=== PATIENT | female | born 1975 | race Caucasian/White ===

== ENCOUNTER 2018-07-31 23:55 | Emergency (ER) | payer MEDICAID ==
[~2018-07-31] VITALS: Ht 175.3 cm; Wt 106.3 kg
[~2018-07-31 23:55] MED LIST: BACL20TA PO; BACL20TA84 PO; BENZ-16 PO; CLIN-26 PO; FURO-61 PO; NEOM10DR45 LEFT EAR; POTA8TAB3 PO; POTA8TAB46 PO
[2018-08-01] MEDS ORDERED: clindamycin 150mg capsule PO ONE (00:05)
[2018-08-01] MEDS ORDERED: CLIN150C8 PO (00:07)
[2018-08-01 00:15] VITALS: BP 132/70
== END 2018-08-01 00:17 | disposition home or self-care (01) ==
LOC: ER 23:58
DX: K08.89 Other specified disorders of teeth and supporting structures (principal); E78.00 Pure hypercholesterolemia, unspecified; J45.909 Unspecified asthma, uncomplicated; G89.29 Other chronic pain; F17.210 Nicotine dependence, cigarettes, uncomplicated; Z88.1 Allergy status to other antibiotic agents; Z88.0 Allergy status to penicillin; Z88.2 Allergy status to sulfonamides; Z91.010 Allergy to peanuts; Z79.2 Long term (current) use of antibiotics; Z79.899 Other long term (current) drug therapy
CPT/HCPCS: 99283

== ENCOUNTER 2025-05-04 22:04 | Inpatient (IN) | payer MEDICAID ==
[~2025-05-04] VITALS: Ht 175.3 cm; Wt 80.5 kg
[~2025-05-04 22:04] MED LIST changes: +CLIN-214 PO; -POTA8TAB3 PO; +POTA8TAB69 PO
[2025-05-04] MEDS: ondansetron/PF 4mg/2ml inj IV ONE (22:44)
[2025-05-04] MEDS: normal saline 1000ml 1,000 ML IV ONE (22:44)
[2025-05-04 23:37] LABS: MEAN PLATELET VOLUME 9.5 FL (7.4-10.4); RED CELL DISTRIBUTION WIDTH 13.7 % (11.5-14.5)
[2025-05-04 23:45] LABS: LEUKOCYTE ESTERASE ,URINE NEGATIVE (Neg); NITRITES, URINE NEGATIVE (Neg); OCCULT BLOOD,URINE MODERATE (Neg)
[2025-05-04 23:46] LABS: UA COLLECTION TYPE CLN CATCH MIDSTREAM
[2025-05-04 23:47] LABS: CREATININE 0.93 MG/DL (0.40-0.90); TOTAL CARBON DIOXIDE 21.5 MMOL/L (24-32); eCRCL 68 ML/MIN; eGFR 64 ML/MIN
[2025-05-04 23:53] LABS: SQUAMOUS EPITHELIAL CELL,UR MODERATE /LPF (FEW); YEAST FEW /HPF (NEGATIVE)
[2025-05-05] VITALS (11 sets, daily range): BP systolic 108–138; BP diastolic 61–76; PULSE 69–101; RESP 15–28; TEMP 97.8–98.9; O2SAT 96–100
[2025-05-05] MEDS ORDERED: CefTRIAXone/D5W-Rocephin 1gm 50 ML IV ONE
[2025-05-05 00:31] LABS: ABG BASE EXCESS -4.6 mmol/L (-2.0-3.0); ABG HCO3 19.0 mmol/L (21.0-28.0); ABG OXYGEN SATURATION 96.7 % (94.0-98.0); ABG PCO2 (T) 31.4 mmHg (32.0-45.0); ABG PH (T) 7.400 (7.350-7.450); ABG PO2 (T) 82.1 mmHg (83.0-108.0); ALLEN'S TEST Modified; FCOHb 1.6 % (0.5-1.5); FHHb 3.2 % (0.0-5.0); FIO2 21.0 mmHg/%; FMetHb 0.3 % (0.0-1.5); FO2Hb 94.9 % (94.0-98.0); MODE ROOM AIR; PATIENT TEMPERATURE 37.1; TOTAL HEMOGLOBIN 14.1 G/dl (12.0-16.0)
[2025-05-05] MEDS: ciprofloxacin 250mg tablet PO ONE (00:33)
[2025-05-05] MEDS: sulfamethoxazole/trimethoprim DS (800/160mg) tablet PO ONE (00:33)
[2025-05-05] MEDS: metoclopramide 5 mg/ml inj IV ONE (01:02)
[2025-05-05] MEDS: normal saline 1000ml 1,000 ML IV ONE ×2 (01:02→03:35)
[2025-05-05] MEDS: insulin regular, human 10 units/0.1 ml syringe IV ONE (01:07)
[2025-05-05] MEDS ORDERED: magnesium sulf-water 2g/50mL 50 ML IV PRN (01:45)
[2025-05-05] MEDS ORDERED: potassium Cl 40MEQ/1/2NS 520ml 520 ML IV PRN (01:45)
[2025-05-05] MEDS ORDERED: magnesium Cl slow-release 64mg tablet PO PRN (01:45)
[2025-05-05] MEDS ORDERED: potassium Cl 20 mEq SR tablet PO PRN (01:45)
[2025-05-05] MEDS ORDERED: magnesium sulf-water 4G/100mL 100 ML IV PRN (01:45)
[2025-05-05] MEDS ORDERED: dextrose 50%-water 50ml dispensing syringe IV PRN ×2 (01:50)
[2025-05-05] MEDS ORDERED: DEXTROSE 15 GM of carb/4 tabs (each vial/BOTTLE has 4 tablets) PO PRN ×2 (01:50)
[2025-05-05] MEDS ORDERED: ringers solution, lacted 1,000 ML IV SCH (01:50)
[2025-05-05] MEDS ORDERED: glucagon, human recombinant 1mg kit SUBCUT PRN (01:50)
[2025-05-05] MEDS: morphine 4 MG/ML inj SYRINge IV STA (01:50)
--- NOTE | 2025-05-05 02:00 | HISTORY AND PHYSICAL-Residence ---
History & Physical Providers to CC Resident Creating Document: JONATHAN HERRERA, VAHID ~ History of Present Illness Primary Medical Doctor: sky walk-in Reason for Admit\\Complaint: N/V History of Present Illness The patient is a 49-year-old female with a PMH of idiopathic intracranial hypertension, prior ischemic stroke related to COVID-19 (no residual deficits), and chronic right ankle fracture, who presents with nausea and intractable vomiting for the past three days. The vomiting is described as bilious. She reports inability to tolerate oral intake during this period. She also endorses progressive polyuria and polydipsia for the past six months. She denies polyphagia. She additionally reports subjective fever since yesterday but denies chills, cough, chest pain, shortness of breath, or diarrhea. Three days ago, she fell in the bath tub when her left knee buckled, leading to worsening pain in her right ankle (previously fractured, using braces). She describes chronic bilateral knee pain. She currently reports severe right ankle pain and dizziness. She has a significant smoking history of 20 pack years (one pack per day for 20 years), though she recently reduced to four cigarettes daily for the past three months. She lives with her mother and adult children NS currently unemployed due to the her ankle injury. Her primary care physician is Dr. Michael Stout at [facility]. She additionally notes dizziness and extreme right ankle pain. She states she fell in the bathtub three days ago when her left knee buckled, leading to worsening right ankle pain. She describes having "bad knees" Allergies: Coded Allergies: Cephalexin Monohydrate (Unverified Allergy, Intermediate, 02/22/14) Penicillins (Unverified Allergy, Intermediate, 02/22/14) Sulfa (Sulfonamide Antibiotics) (Verified Allergy, Unknown, 02/22/14) peanut (Verified Allergy, Unknown, 02/22/14) Home Medications Home Medications Active Clindamycin HCl CAPSULE (Clindamycin HCl) 150 Mg Capsule 2 Cap PO TID Tessalon Perle (Benzonatate) 100 Mg Capsule 1 Cap PO Q8H 7 Days Ddspinqc-Hkuebnrlp-Uh Ear Susp (Neomycin/Polymyxin B Sulf/Hc) 10 Ml Drops.susp 3 Drop LEFT EAR TID Baclofen 20 Mg Tablet 1 Tablet PO TID Klor-Con 8 (Potassium Chloride) 8 Meq Tablet.er 1 Tab PO DAILY Klor-Con 8 (Potassium Chloride) 8 Meq Tablet.sa 8 Meq PO DAILY Baclofen 20 Mg Tablet 20 Mg PO TID FALL RISK Furosemide 20 Mg Tablet 20 Mg PO DAILY Baclofen 20 Mg Tablet 20 Mg PO TID FALL RISK Clindamycin HCl 150 Mg Capsule 450 Cap PO TID Past Medical History Past Medical History Idiopathic intracranial hypertension, stroke from COVID four years ago Past Surgical History Surgical History Comment Noncontributory Past Social History Social History Comment Lives with her mom in four adult children, currently unemployed due to right ankle injury. She smoked one pack per day for 20 years, currently reduced to four cigarettes per day. Denies consuming alcohol or using recreational drugs. Smoking: Cigarettes Alcohol Use: None Drug Use: None Lives In: Home Occupation: employed ROS All Other Systems: Reviewed and Negative ROS As stated above in the HPI, otherwise all systems are reviewed and negative. Exam Vitals: Vital Signs Date Time Temp Pulse Resp B/P (MAP) Pulse Ox O2 Delivery O2 Flow Rate FiO2 05/05/25 01:50 16 05/05/25 00:38 05/04/25 23:51 88 99 05/04/25 22:07 98.8 0 General: Awake and Alert, no acute distress. HEENT: Conjunctiva pink, Sclera clear, extremely dry Neck: Supple without masses and tenderness. Resp: Unlabored. Lungs clear to auscultation bilaterally. Heart: Regular Rate and rhythm, normal S1 and S2 without murmur, rub or gallop. Abdomen: Soft and non tender no organomegaly Extremities: Peripheral neuropathies, painful right ankle. Limited range of motion left knee Skin: Warm and Dry. Diagnostic Data Last Recorded Lab Results: 05/04/25220905/04/252209 Advance Care Planning Advanced Care plannin - 30 Minutes Additional Plan 1. Newly diagnosed diabetes mellitus with severe hyperglycemia Blood glucose 524, hemoglobin A1c pending Evidence of hyperglycemia and ketonuria but no acidosis. Does not meet criteria for DKA or HHS but consistent with severe hyperglycemia with dehydration Plan Admitted to telemetry floor IV hydration; 2 L NS bolus, then NS 150 mL/hours Received 10 units of Humulin in ER Hyperglycemia/hypoglycemia protocol in place; 25 units of glargine, 10 units of lispro 3 times daily before meal Treat as HHS if effective osmolality more than 320 or AMS develops. Serum osmolality pending Nausea and vomiting; Zofran and Reglan Monitor BMP closely 2. Urinary tract infection UA with pyuria, glucosuria, ketonuria Allergic to penicillins, started empiric ciprofloxacin 400 mg IV Culture pending Monitor fever, WBC, symptoms 3. Severe dehydration From intractable N/V. Loss of skin turgor, mucous membrane extremely dry IV hydration; NS 150 mL/hour 4. Hyponatremia Sodium 129, corrected 136. Likely pseudo hyponatremia secondary to hyperglycemia IV hydration, and hyperglycemia correction 5. mild hypokalemia Borderline low, may worsened with insulin On potassium replacement protocol Monitor BMP closely 5. Right ankle pain after fall History of prior fracture; acute worsening after bathtub fall X-ray of right ankle to evaluate for acute fracture Pain management; morphine 2 mg q.6h PRN 6. Idiopathic intracranial hypertension/pseudomotor cerebri Home furosemide 20 mg daily Dehydration plus diuretic use could have worsened volume depletion Hold Lasix acutely while dehydrated; revisit once euvolemic/electrolytes stable Screen for IH symptoms; headache, visual disturbance, pulsatile tinnitus, or diplopia Outpatient funduscopic exam 7. Tobacco use disorder Twenty pack-year history, recently reduced to four cigarettes per day Counseled on cessation Nicotine patch ordered Code status: Full code DVT prophylaxis: Teresa Herrera Internal Medicine Resident I saw and discussed the care of this pt with the resident team I agree with assessment and plan as documented I have suggested more hydration and continuation of insulin and other treatments Thank you Date of Service: May 05, 2025 Billing Provider: JIMMY CURRY MD, SHAMS, RES May 05, 2025 02:00 JIMMY CURRY MD May 05, 2025 03:41
[2025-05-05] MEDS ORDERED: MONT-40 PO (02:02)
[2025-05-05] MEDS ORDERED: ALBUTEROL (02:02)
[2025-05-05] MEDS ORDERED: AMLO5TAB16 PO (02:02)
[2025-05-05] MEDS ORDERED: GABA300T28 (02:02)
[2025-05-05] MEDS ORDERED: HYDR50TA65 PO (02:02)
[2025-05-05] MEDS ORDERED: GABA300T28 PO (02:02)
[2025-05-05] MEDS ORDERED: ATOR40TA72 PO (02:05)
[2025-05-05] MEDS ORDERED: METO50TA16 PO (02:05)
[2025-05-05] MEDS ORDERED: ASPI-1397 PO (02:05)
[2025-05-05] MEDS ORDERED: BUDE10.2 PO (02:05)
[2025-05-05 02:23] LABS: OSMOLALITY 300 MOSM/K (280-300)
[2025-05-05] MEDS: normal saline 1000ml 1,000 ML IV SCH (03:00)
[2025-05-05] MEDS: nicotine 14mg patch - 24hr TD ONE (03:02)
[2025-05-05] MEDS ORDERED: furosemide 10 MG/1 ML 10ml inj IV ONE (03:25)
[2025-05-05] MEDS: potassium Cl 20 mEq SR tablet PO PRN ×2 (03:55→21:39)
[2025-05-05 04:24] LABS: URINE AMPHETAMINE SCREEN NEGATIVE (Neg); URINE BARBITUATE SCREEN NEGATIVE (Neg); URINE BENZODIAZEPINES SCREEN NEGATIVE (Neg); URINE CANNABINOID SCREEN NEGATIVE (Neg); URINE COCAINE SCREEN NEGATIVE (Neg); URINE METHADONE SCREEN NEGATIVE (Neg); URINE OPIATE SCREEN NEGATIVE (Neg); URINE PHENCYCLIDINE SCREEN NEGATIVE (Neg)
[2025-05-05] MEDS: INSULIN LISPRO 100 UNIT/ML INSULN.PEN MULTI-DOSE SQ SCH ×2 (07:00→09:44)
--- NOTE | 2025-05-05 07:49 | RADIOLOGY REPORT ---
EXAM: DI ANKLE,LIMITED (AP/LAT) CLINICAL INDICATION: Pain worsened after fall TECHNIQUE: DI ANKLE,LIMITED (AP/LAT) Comparison: None FINDINGS/IMPRESSION: There is no evidence of acute fracture or dislocation. The visualized joint space is well maintained. The alignment is anatomical. There is no radiopaque foreign body.
[2025-05-05] MEDS: K and/or MAG REPLACEMENT MC SCH (08:00)
[2025-05-05] MEDS ORDERED: CefTRIAXone/D5W-Rocephin 1gm 50 ML IV SCH (08:00)
[2025-05-05] MEDS: insulin regular, human U-100 10ml vial - multi-dose IV ONE (08:24)
[2025-05-05] MEDS: enoxaparin 40mg/0.4ml syringe SUBCUT SCH (08:34)
[2025-05-05] MEDS: ondansetron/PF 4mg/2ml inj IV PRN (08:34)
[2025-05-05 08:53] LABS: MEAN PLATELET VOLUME 9.4 FL (7.4-10.4); RED CELL DISTRIBUTION WIDTH 13.6 % (11.5-14.5)
[2025-05-05 09:08] LABS: CREATININE 0.90 MG/DL (0.40-0.90); TOTAL CARBON DIOXIDE 23.2 MMOL/L (24-32); eCRCL 78 ML/MIN; eGFR 66 ML/MIN
[2025-05-05] MEDS: metoclopramide 5 mg/ml inj IV PRN (10:32)
[2025-05-05] MEDS: HYDROmorphone inj. 0.5 MG/0.5 ML DISP.SYRIN IV PRN (10:55)
[2025-05-05] MEDS: ciprofloxacin lact 400MG/200ML 200 ML IV SCH (11:39)
[2025-05-05] MEDS: ipratropium/albuterol 3ml nebule NEB PRN (12:33)
--- NOTE | 2025-05-05 13:07 | RADIOLOGY REPORT ---
EXAM: DI KNEE, COMP 4 VW MIN CLINICAL INDICATION: Fall with left knee pain TECHNIQUE: DI KNEE, COMP 4 VW MIN Comparison: None FINDINGS/IMPRESSION: There is no evidence of acute fracture or dislocation. Moderate left knee osteoarthritis . Loose bodies are present. The alignment is anatomical. There is no radiopaque foreign body.
[2025-05-05] MEDS ORDERED: POTASSIUM CHLORIDE 20 MEQ/15 ML oral solution PO PRN (16:04)
[2025-05-05] MEDS: POTASSIUM CHLORIDE 20 MEQ/15 ML oral solution PO PRN (18:01)
[2025-05-05] MEDS: insulin glargine (Lantus) pen - multi-dose SQ SCH (20:52)
--- NOTE | 2025-05-05 22:27 | PROGRESS NOTE ---
Daily Progress Note Providers to CC ~ Antibiotic Timeout Antibiotic Ordered?: Yes Subjective The patient's blood sugar went up to the 400s again today and I gave the patient 10 units of IV insulin which the patient's blood glucose did improved to the 200s, the patient does not have any acute complaints or concerns Objective Vital Signs Date Time Temp Pulse Resp B/P (MAP) Pulse Ox O2 Delivery O2 Flow Rate FiO2 05/05/25 20:15 90 05/05/25 19:34 20 98 Room Air* 0 21 05/05/25 15:00 98.1 110/76 (87) Result Diagram: 05/05/25 0235 05/05/25 0235 Gen. No acute distress alert and oriented 4 Lungs clear to ascultation bilaterally, no wheezes rales or rhonchi appreciated Heart normal sinus rhythm no murmurs rubs or clicks noted Abdomen soft nontender bowel sounds are normoactive Lower extremities no clubbing cyanosis, nor edema appreciated bilaterally Problem\Assessment\Plan 1. Newly diagnosed diabetes mellitus with severe hyperglycemia Blood glucose 524, hemoglobin A1c pending Evidence of hyperglycemia and ketonuria but no acidosis. Does not meet criteria for DKA or HHS but consistent with severe hyperglycemia with dehydration Plan Admitted to telemetry floor IV hydration; 2 L NS bolus, then NS 150 mL/hours Received 10 units of Humulin in ER Hyperglycemia/hypoglycemia protocol in place; 25 units of glargine, 10 units of lispro 3 times daily before meal Treat as HHS if effective osmolality more than 320 or AMS develops. Serum osmolality pending Nausea and vomiting; Zofran and Reglan Monitor BMP closely Blood sugar spiked again to the 400s gave the patient 10 units of IV Humalog and the blood glucose improved to the 200s 2. Urinary tract infection UA with pyuria, glucosuria, ketonuria Allergic to penicillins, started empiric ciprofloxacin 400 mg IV Culture pending Monitor fever, WBC, symptoms 3. Severe dehydration From intractable N/V. Loss of skin turgor, mucous membrane extremely dry IV hydration; NS 150 mL/hour 4. Hyponatremia Sodium 129, corrected 136. Likely pseudo hyponatremia secondary to hyperglycemia IV hydration, and hyperglycemia correction 5. mild hypokalemia Borderline low, may worsened with insulin On potassium replacement protocol Monitor BMP closely 6. Right ankle pain after fall History of prior fracture; acute worsening after bathtub fall X-ray of right ankle to evaluate for acute fracture was negative Pain management; morphine 2 mg q.6h PRN 7. Left knee strain X-ray was negative for fracture or malalignment PT is ordered 8. Idiopathic intracranial hypertension/pseudomotor cerebri Home furosemide 20 mg daily Dehydration plus diuretic use could have worsened volume depletion Hold Lasix acutely while dehydrated; revisit once euvolemic/electrolytes stable Screen for IH symptoms; headache, visual disturbance, pulsatile tinnitus, or diplopia Outpatient funduscopic exam 7. Tobacco use disorder Twenty pack-year history, recently reduced to four cigarettes per day Counseled on cessation Nicotine patch ordered Code status: Full code I spent 40 minutes on critical care time treating the patient on 05/05/2025 Date of Service: May 05, 2025 Billing Provider: CHIQUI LOVING DO Common Visit Codes: [id number] CARE 30-74 MIN CHIQUI LOVING DO May 05, 2025 22:27
[2025-05-06] VITALS (12 sets, daily range): BP systolic 98–132; BP diastolic 58–85; PULSE 62–96; RESP 13–20; TEMP 97.8–99.1; O2SAT 96–100
[2025-05-06 04:51] LABS: MEAN PLATELET VOLUME 8.5 FL (7.4-10.4); RED CELL DISTRIBUTION WIDTH 13.5 % (11.5-14.5)
[2025-05-06 05:14] LABS: CHOL/HDL RATIO 6.0 (0.00-4.99); CREATININE 0.76 MG/DL (0.40-0.90); LDL CHOLESTEROL 63 MG/DL (50-100); TOTAL CARBON DIOXIDE 19.7 MMOL/L (24-32); eCRCL 93 ML/MIN; eGFR 81 ML/MIN
[2025-05-06] MEDS: albuterol 2.5 MG/3 ML nebule NEB PRN (07:38)
[2025-05-06] MEDS: aspirin 81mg, enteric-coated 1 TAB TABLET.DR PO SCH (08:35)
[2025-05-06] MEDS: nicotine 21mg patch - 24 hr TD ONE (14:57)
[2025-05-06] MEDS: INSULIN LISPRO 100 UNIT/ML INSULN.PEN MULTI-DOSE SQ SCH (17:00)
[2025-05-06] MEDS: HYDROcodone/acetaminophen 10/325mg tab PO PRN (20:21)
[2025-05-06] MEDS: insulin glargine (Lantus) pen - multi-dose SQ SCH (20:28)
--- NOTE | 2025-05-06 21:55 | PROGRESS NOTE ---
Daily Progress Note Providers to CC ~ Antibiotic Timeout Antibiotic Ordered?: Yes Subjective The patient's blood sugars are improving the patient continues to have burning and throbbing in her lower extremities had had a right calcaneal fracture on March 06 I have ordered a calcaneal x-ray. Objective Vital Signs Date Time Temp Pulse Resp B/P (MAP) Pulse Ox O2 Delivery O2 Flow Rate FiO2 05/06/25 20:22 72 05/06/25 20:21 16 05/06/25 17:12 Room Air 0.0 05/06/25 17:07 100 21 05/06/25 14:06 98.1 128/85 (99) Result Diagram: 05/06/258 05/06/25437 Gen. No acute distress alert and oriented 4 Lungs clear to ascultation bilaterally, no wheezes rales or rhonchi appreciated Heart normal sinus rhythm no murmurs rubs or clicks noted Abdomen soft nontender bowel sounds are normoactive Lower extremities no clubbing cyanosis, nor edema appreciated bilaterally Problem\Assessment\Plan 1. Newly diagnosed diabetes mellitus with severe hyperglycemia Blood glucose 524, hemoglobin A1c pending Evidence of hyperglycemia and ketonuria but no acidosis. Does not meet criteria for DKA or HHS but consistent with severe hyperglycemia with dehydration Plan Admitted to telemetry floor IV hydration; 2 L NS bolus, then NS 150 mL/hours Received 10 units of Humulin in ER Hyperglycemia/hypoglycemia protocol in place; 25 units of glargine, 10 units of lispro 3 times daily before meal Treat as HHS if effective osmolality more than 320 or AMS develops. Serum osmolality pending Nausea and vomiting; Allyssafran and Reglan Monitor BMP closely Blood sugar spiked again to the 400s gave the patient 10 units of IV Humalog and the blood glucose improved to the 200s 05/06 improving with increasing postprandial insulin to 18 units and we will increase Lantus to 35 units at night 2. Urinary tract infection secondary to cystitis Urine culture positive for Enterobacter cloacae sensitive to all antibiotics tested other than Augmentin continue IV Cipro 3. Severe dehydration From intractable N/V. Loss of skin turgor, mucous membrane extremely dry IV hydration; NS 150 mL/hour 4. Hyponatremia Sodium 129, corrected 136. Likely pseudo hyponatremia secondary to hyperglycemia IV hydration, and hyperglycemia correction 5. mild hypokalemia Borderline low, may worsened with insulin On potassium replacement protocol Monitor BMP closely 6. Right ankle pain after fall History of prior fracture; acute worsening after bathtub fall X-ray of right ankle to evaluate for acute fracture was negative Pain management; morphine 2 mg q.6h PRN 7. Left knee strain X-ray was negative for fracture or malalignment PT is ordered 8. Idiopathic intracranial hypertension/pseudomotor cerebri Home furosemide 20 mg daily Dehydration plus diuretic use could have worsened volume depletion Hold Lasix acutely while dehydrated; revisit once euvolemic/electrolytes stable Screen for IH symptoms; headache, visual disturbance, pulsatile tinnitus, or diplopia Outpatient funduscopic exam 7. Tobacco use disorder Twenty pack-year history, recently reduced to four cigarettes per day Counseled on cessation Nicotine patch ordered Tobacco use disorder-I spent 12 minutes discussing smoking cessation with the patient on 05/06/2025 including the risk of continuing smoke: Lung cancer, stroke, heart attack, poor wound healing, increased in facial wrinkling, cigarette smoke also leads a foul smell on clothing and fabrics, risk of MRSA skin infections. The expense of smoking cigarettes and how cigarettes have been scientifically engineered to be as addictive as humanly possible. The patient has accepted a 21 mg nicotine patch. The patient does smoke upwards close to two packs a day Code status: Full code I spent 40 minutes on critical care time treating the patient on 05/05/2025 Date of Service: May 06, 2025 Billing Provider: CHIQUI LOVING DO Common Visit Codes: [id number] INP/OBS CARE(HIGH) Secondary Visit Codes: 34959-RESRO CHNG SMOKING >10MIN CHIQUI LOVING DO May 06, 2025 21:55
[2025-05-07] VITALS (11 sets, daily range): BP systolic 100–137; BP diastolic 70–84; PULSE 71–104; RESP 14–20; TEMP 97.5–98.1; O2SAT 94–99
[2025-05-07 05:58] LABS: MEAN PLATELET VOLUME 9.0 FL (7.4-10.4); RED CELL DISTRIBUTION WIDTH 13.5 % (11.5-14.5)
[2025-05-07 06:25] LABS: CREATININE 0.91 MG/DL (0.40-0.90); TOTAL CARBON DIOXIDE 28.1 MMOL/L (24-32); eCRCL 77 ML/MIN; eGFR 65 ML/MIN
[2025-05-07] MEDS ORDERED: INSULIN LISPRO 100 UNIT/ML INSULN.PEN MULTI-DOSE SQ SCH (07:48)
--- NOTE | 2025-05-07 08:12 | RADIOLOGY REPORT ---
EXAM: DI OS CALCIS (HEEL) INDICATION: hx of right calcaneal frx TECHNIQUE: 2 views of the calcaneus COMPARISON: DI OS CALCIS (HEEL) on DOS: 05/06/25 FINDINGS/IMPRESSION: No radiographic evidence of an acute osseous abnormality. There is no acute fracture, osseous malalignment, or aggressive focal osseous lesion. No discrete fracture plane. Small plantar calcaneal spur. Small amount of spurring along the dorsal proximal aspect of the navicular bone. Achilles tendon appears intact.
[2025-05-07] MEDS: potassium Cl 20 mEq SR tablet PO PRN (08:19)
[2025-05-07] MEDS: nicotine 21mg patch - 24 hr TD SCH (08:52)
[2025-05-07] MEDS: INSULIN LISPRO 100 UNIT/ML INSULN.PEN MULTI-DOSE SQ SCH (09:00)
--- NOTE | 2025-05-07 16:45 | Physician Documentation ---
History of Present Illness ~ Chief Complaint: Vomiting Stated Complaint: N/V Time Seen by MD: 22:10 Primary Medical Doctor: sky walk-in Mode of Arrival: EMS HPI The patient is a 49-year-old female with a PMH of idiopathic intracranial hypertension, prior ischemic stroke related to COVID-19 (no residual deficits), and chronic right ankle fracture, who presents with nausea and intractable vomiting for the past three days. The vomiting is described as bilious. She reports inability to tolerate oral intake during this period. She also endorses progressive polyuria and polydipsia for the past six months. She denies polyphagia. She additionally reports subjective fever since yesterday but denies chills, cough, chest pain, shortness of breath, or diarrhea. Three days ago, she fell in the bath tub when her left knee buckled, leading to worsening pain in her right ankle (previously fractured, using braces). She describes chronic bilateral knee pain. She currently reports severe right ankle pain and dizziness. She has a significant smoking history of 20 pack years (one pack per day for 20 years), though she recently reduced to four cigarettes daily for the past three months. She lives with her mother and adult children NS currently unemployed due to the her ankle injury. Medication Reconciliation Allergies: Coded Allergies: Cephalexin Monohydrate (Unverified Allergy, Intermediate, 02/22/14) Penicillins (Unverified Allergy, Intermediate, 02/22/14) Sulfa (Sulfonamide Antibiotics) (Verified Allergy, Unknown, 02/22/14) peanut (Verified Allergy, Unknown, 02/22/14) Scheduled Amlodipine Besylate (Amlodipine Besylate), 1 TAB PO BID, (Reported) Aspirin (Aspirin EC), 1 TAB PO DAILY, (Reported) Atorvastatin Calcium (Atorvastatin Calcium), 1 TAB PO DAILY, (Reported) Baclofen (Baclofen), 1 TABLET PO TID Furosemide (Furosemide), 20 MG PO DAILY Gabapentin (Gabapentin ER), 1 CAP PO TID, (Reported) Metoprolol Tartrate (Metoprolol Tartrate), 1 TAB PO BID, (Reported) Montelukast Sodium (Montelukast Sodium), 1 TAB PO DAILY, (Reported) Potassium Chloride (Klor-Con 8), 1 TAB PO DAILY Scheduled PRN Hydroxyzine HCl (Hydroxyzine HCl), 1 TAB PO TID PRN for itch, (Reported) Miscellaneous Medications Budesonide/Formoterol Fumarate (Symbicort 160-4.5 Mcg Inhaler), 2 PUFFS PO, (Reported) [Albuterol], (Reported) Discontinued Medications Baclofen (Baclofen), 20 MG PO TID Discontinued Reason: patient no longer taking Baclofen (Baclofen), 20 MG PO TID Discontinued Reason: patient no longer taking Benzonatate (Tessalon Perle), 1 CAP PO Q8H Discontinued Reason: patient no longer taking Clindamycin HCl (Clindamycin HCl), 450 CAP PO TID Discontinued Reason: patient no longer taking Clindamycin HCl (Clindamycin HCl CAPSULE), 2 CAP PO TID Discontinued Reason: patient no longer taking Gabapentin (Gabapentin ER), (Reported) Discontinued Reason: completed med therapy Neomycin/Polymyxin B Sulf/Hc (Pclhcpil-Sloeuslup-Pn Ear Susp), 3 DROP LEFT EAR TID Discontinued Reason: patient no longer taking Potassium Chloride (Klor-Con 8), 8 MEQ PO DAILY Discontinued Reason: patient no longer taking Past Medical History Past Medical History: High Cholesterol, Asthma, Chronic Back Pain Past Surgical History: no surgical history Patient History: FH: diabetes mellitus MOTHER GRANDFATHER OR GRANDMOTHER GRANDFATHER OR GRANDMOTHER FH: prostate cancer FATHER GRANDFATHER OR GRANDMOTHER Smoking Status: Current every day smoker Alcohol Use: None Drug Use: none Lives In: Home Occupation: employed Review of Systems All Other Systems at this time: Reviewed and Negative Physical Exam Vital Signs: RN Vital Signs have been reviewed: Yes, Temperature: 98.1, Source: Oral, Heart Rate: 99, Respiratory Rate: 16, BP: 111/73, Pulse Oximetry: 97, Weight: 80.500 Oxygen Flow Rate: 0.0 Physical Exam HEENT: PERRL, moist oral mucosa, EOMI Pulmonary: No respiratory distress CTAB Cardiac: RRR, no murmur, rub or gallop GI: nondistended, soft, nontender, no guarding, no rebound MSK: no deformity; R ankle TTP diffusely Skin: w/d/i, no rash Neuro: alert, nonfocal Psych: normal affect Progress Results/Orders Results/Orders Orders - MICHELLE VALENCIA MD Abg (Arterial Blood Gas) (05/05/25 ) [facility] Hospitalist (05/05/25 01:00) Completed Orders - MICHELLE VALENCIA MD Ondansetron Inj. (Zofran 4mg/2ml Vial) (05/04/25 22:15) Normal Saline 1000ml (0.9% Sodium Chlori (05/04/25 22:20) Cbc/Diff (05/04/25 22:58) CMP (05/04/25 22:58) Ua W/Microscopic, Cult If Ind (05/04/25 23:28) Cult Urine + [place] [address] (05/04/25 23:54) Ceftriaxone/V1r-Zmjhqczf 1gm (Rocephin 1 (05/05/25 00:00) Sulfamethox/Trimetho. Ds Tab (Septra Ds (05/05/25 00:15) Ciprofloxacin Tablet (Cipro Tablet) (05/05/25 00:20) Metoclopramide Inj (Reglan Inj) (05/05/25 00:50) Insulin Regular, Human (Humulin R 10 Uni (05/05/25 00:50) Normal Saline 1000ml (0.9% Sodium Chlori (05/05/25 00:50) Hgb A1c (05/04/25 22:10) Osmolality (05/04/25 22:10) Vital Signs 05/04/25 05/04/25 05/05/25 05/05/25 22:07 23:51 00:38 01:00 Temp 98.8 Pulse 97 88 88 Resp 18 16 16 18 B/P (MAP) 131/90 122/77 (92) 110/83 (92) Pulse Ox 97 99 98 O2 Flow Rate 0 0 Laboratory Tests Test 05/04/25 22:10 05/04/25 23:28 05/04/25 23:55 05/05/25 00:28 White Blood Count 13.7 H Red Blood Count 4.85 Hemoglobin 14.8 Hematocrit 43.2 Mean Corpuscular Volume 89.0 Mean Corpuscular Hemoglobin 30.6 Mean Corpuscular Hemoglobin Concent 34.3 Red Cell Distribution Width 13.7 Platelet Count 230 Mean Platelet Volume 9.5 Neutrophils (%) (Auto) 84.3 H Lymphocytes (%) (Auto) 6.4 L Monocytes (%) (Auto) 9.1 Eosinophils (%) (Auto) 0 Basophils (%) (Auto) 0.2 Neutrophils # (Auto) 11.5 H Lymphocytes # (Auto) 0.9 L Monocytes # (Auto) 1.2 H Eosinophils # (Auto) 0.0 Basophils # (Auto) 0.0 CBC Comment Sodium Level 129 L Potassium Level 3.4 L Chloride Level 93 L Carbon Dioxide Level 21.5 L Anion Gap 15 Blood Urea Nitrogen 9 Creatinine 0.93 H Estimated GFR/1.73 m2 64 BUN/Creatinine Ratio 9.7 L Glucose Level 524 *H Hemoglobin A1c > 12.0 H Osmolality 300 Calcium Level 9.1 Total Bilirubin 0.4 Aspartate Amino Transf (AST/SGOT) 11 Alanine Aminotransferase (ALT/SGPT) 13 Alkaline Phosphatase 158 H Total Protein 7.6 Albumin 2.3 L Globulin 5.3 H Albumin/Globulin Ratio 0.4 L Chemistry Comments Urine Specimen Description Cln catch midstream Urine Color Yellow Urine Clarity Clear Urine pH 6.0 Urine Specific [place] 1.010 Urine Protein 30 H Urine Glucose (UA) >=1000 H Urine Ketones >=80 Urine Occult Blood Moderate H Urine Nitrite Negative Urine Bilirubin Negative Urine Urobilinogen 0.2 Urine Leukocyte Esterase Negative Urine RBC 20-50 Urine WBC 50-100 H Urine Squamous Epithelial Cells Moderate Urine Bacteria 2+ Urine Yeast Few Urine Culture Indicated Indicated Volume Urine Centrifuged 10 ml Urine Comment Urine Opiates Screen Negative Urine Methadone Screen Negative Urine Fentanyl Screen Negative Urine Barbiturates Screen Negative Urine Phencyclidine Screen Negative Urine Amphetamines Screen Negative Urine Benzodiazepines Screen Negative Urine Cocaine Screen Negative Urine Cannabinoids Screen Negative Drug Screen Comment Glucometer 463 *H Blood Gas Specimen Type Arterial Blood Gas Puncture Site Rr O2 Saturation 96.7 Arterial Blood pH (Temp corrected) 7.400 Arterial Blood pCO2 (Temp correct) 31.4 L Arterial Blood pO2 (Temp corrected) 82.1 L Arterial Blood PO2/FiO2 Ratio 3.89 Arterial Blood HCO3 19.0 L Arterial Blood Base Excess -4.6 L Arterial Blood Oxyhemoglobin 94.9 Arterial Blood Carboxyhemoglobin 1.6 H Arterial Blood Methemoglobin 0.3 Arterial Blood Deoxyhemoglobin 3.2 Dorian Test Modified Blood Gas Hemoglobin 14.1 Blood Gas Temperature 37.1 Blood Gas Modality Room air FiO2 21.0 Microbiology Date/Time Source Procedure Growth Status 05/04/25 23:54 Urine Clean Catch Midstream Urine Culture - Final Enterobacter Cloacae Complex Complete Medical Decision Making Findings 49 year old female with vomiting as above. Workup demonstrated marked hyperglycemia but no acidosis as well as UTI. IVF and antibiotics, care transferred to hospitalist. Additional Comments Ddx = DKA, HHS, sepsis, UTI, pneumonia, gastroenteritis Departure Disposition: 09 ADMITTED INPATIENT Impression: Primary Impression: Hyperglycemia Additional Impressions: Hypokalemia UTI (urinary tract infection) Condition: Stable Referrals: NO PRIMARY CARE PROVIDER (PCP) Education Educated: Patient Educated regarding: diagnosis, treatment, prognosis, need for follow up Signature Scribe Signature: . Attestation: . MICHELLE VALENCIA MD May 07, 2025 16:45
--- NOTE | 2025-05-07 22:51 | PROGRESS NOTE ---
Daily Progress Note Providers to CC ~ Antibiotic Timeout Antibiotic Ordered?: No Subjective The patient is states that gabapentin was more efficacious than pregabalin - the patient's blood sugars have improved significantly- awaiting physical therapy evaluation Objective Vital Signs Date Time Temp Pulse Resp B/P (MAP) Pulse Ox O2 Delivery O2 Flow Rate FiO2 05/07/25 22:00 97.5 82 14 100/70 (80) 99 Room Air 05/07/25 21:23 0.0 05/07/25 21:17 21 Result Diagram: 05/07/2544805/07/25448 Gen. No acute distress alert and oriented 4 Lungs clear to ascultation bilaterally, no wheezes rales or rhonchi appreciated Heart normal sinus rhythm no murmurs rubs or clicks noted Abdomen soft nontender bowel sounds are normoactive Lower extremities no clubbing cyanosis, nor edema appreciated bilaterally Problem\Assessment\Plan 1. Newly diagnosed diabetes mellitus with severe hyperglycemia Blood glucose 524, hemoglobin A1c pending Evidence of hyperglycemia and ketonuria but no acidosis. Does not meet criteria for DKA or HHS but consistent with severe hyperglycemia with dehydration Plan Admitted to telemetry floor IV hydration; 2 L NS bolus, then NS 150 mL/hours Received 10 units of Humulin in ER Hyperglycemia/hypoglycemia protocol in place; 25 units of glargine, 10 units of lispro 3 times daily before meal Treat as HHS if effective osmolality more than 320 or AMS develops. Serum osmolality pending Nausea and vomiting; Zofran and Reglan Monitor BMP closely Blood sugar spiked again to the 400s gave the patient 10 units of IV Humalog and the blood glucose improved to the 200s 05/06 improving with increasing postprandial insulin to 18 units and we will increase Lantus to 35 units at night 05/07 significantly improved did decrease postprandial insulin to 14 units continue 35 units of Lantus at night 2. Urinary tract infection secondary to cystitis Urine culture positive for Enterobacter cloacae sensitive to all antibiotics tested other than Augmentin continue IV Cipro 3. Severe dehydration From intractable N/V. Loss of skin turgor, mucous membrane extremely dry IV hydration; NS 75 mL/hour 4. Hyponatremia Sodium 129, corrected 136. Likely pseudo hyponatremia secondary to hyperglycemia IV hydration, and hyperglycemia correction Resolved 5. mild hypokalemia Borderline low, may worsened with insulin On potassium replacement protocol Monitor BMP closely 6. Right ankle pain after fall History of prior fracture; acute worsening after bathtub fall X-ray of right ankle to evaluate for acute fracture was negative Pain management; morphine 2 mg q.6h PRN 05/07 calcaneal x-ray was negative 7. Left knee strain X-ray was negative for fracture or malalignment PT is ordered 8. Idiopathic intracranial hypertension/pseudomotor cerebri Home furosemide 20 mg daily Dehydration plus diuretic use could have worsened volume depletion Hold Lasix acutely while dehydrated; revisit once euvolemic/electrolytes stable Screen for IH symptoms; headache, visual disturbance, pulsatile tinnitus, or diplopia Outpatient funduscopic exam 7. Tobacco use disorder Twenty pack-year history, recently reduced to four cigarettes per day Counseled on cessation Nicotine patch ordered Tobacco use disorder-I spent 12 minutes discussing smoking cessation with the patient on 05/06/2025 including the risk of continuing smoke: Lung cancer, stroke, heart attack, poor wound healing, increased in facial wrinkling, cigarette smoke also leads a foul smell on clothing and fabrics, risk of MRSA skin infections. The expense of smoking cigarettes and how cigarettes have been scientifically engineered to be as addictive as humanly possible. The patient has accepted a 21 mg nicotine patch. The patient does smoke upwards close to two packs a day Code status: Full code I spent 40 minutes on critical care time treating the patient on 05/05/2025 Date of Service: May 07, 2025 Billing Provider: CHIQUI LOVING DO Common Visit Codes: [id number] INP/OBS CARE(HIGH) CHIQUI LOVING DO May 07, 2025 22:51
[2025-05-08] VITALS (7 sets, daily range): BP systolic 106–127; BP diastolic 64–89; PULSE 85–92; RESP 14–16; TEMP 97.8–98.1; O2SAT 98–100
[2025-05-08] MEDS: HYDROcodone/acetaminophen 5mg/325mg tablet PO PRN (02:42)
[2025-05-08 04:54] LABS: MEAN PLATELET VOLUME 8.7 FL (7.4-10.4); RED CELL DISTRIBUTION WIDTH 13.7 % (11.5-14.5)
[2025-05-08 05:22] LABS: CREATININE 0.46 MG/DL (0.40-0.90); TOTAL CARBON DIOXIDE 23.6 MMOL/L (24-32); eCRCL 153 ML/MIN; eGFR > 90 ML/MIN
[2025-05-08 05:30] LABS: BANDS% (MANUAL) 4 % (0-10); EOSINOPHILS % (MANUAL) 3 % (0-6); LYMPHOCYTES % (MANUAL) 23 % (21-51); METAMYLEOCYTES% (MANUAL) 1 % (0-0); MONOCYTES % (MANUAL) 4 % (2-12); NEUTROPHILS % (MANUAL) 65 % (42-75); PLATELET ESTIMATE NORMAL
[2025-05-08] MEDS ORDERED: FURO-150 PO (11:00)
[2025-05-08] MEDS ORDERED: BACL20TA PO (11:01)
[2025-05-08] MEDS: magnesium hydroxide 30ml (MOM) UD suspension PO ONE (15:37)
[2025-05-08] MEDS ORDERED: HYDR-3964 PO (15:54)
[2025-05-08] MEDS ORDERED: INSU100I31 SQ (15:54)
[2025-05-08] MEDS ORDERED: NEED-136 SUBCUT (15:54)
[2025-05-08] MEDS ORDERED: NICO-687 TD (15:54)
[2025-05-08] MEDS ORDERED: INSU100I8 SQ (15:54)
[2025-05-08] MEDS ORDERED: LISI2.5T14 PO (15:57)
--- NOTE | 2025-05-08 23:22 | DISCHARGE SUMMARY ---
Discharge Summary Providers to CC ~ Discharge Summary Admission Diagnosis: HYPERGLYCEMIC HYPEROSMOLAR STATE, UTI Hospital Course DATE OF ADMISSION: 05/05/2025 DATE OF DISCHARGE: 05/08/2025 Discharge Diagnosis\\Comment: Acute diabetes, urinary tract infection secondary to cystitis, severe dehydr ation, hyponatremia, mild hypokalemia, right ankle pain post fall, left knee strain, idiopathic intracranial hypertension, tobacco use disorder Operations\\Procedures: None Consultants: None Complications: None Condition on DC: Stable New Medications: Insulin Glargine,Hum.rec.anlog (Basaglar Kwikpen U-100) 100 Unit/Ml (3 Ml) Insuln.pen 35 UNITS SQ QPM, #12 ML Lisinopril (Lisinopril) 2.5 Mg Tablet 1 TAB PO DAILY for 30 Days, #30 TAB 0 Refills [place], Insulin Disposable (Bd Ultra-Fine Pen Needle) 31 Gauge X 5/16" Dis.needle SYR SUBCUT Q6H, #150 0 Refills Hydrocodone Bit/Acetaminophen (Hydrocodon-Acetaminophen 5-325) 5 Mg-325 Mg Tablet 1 TAB PO Q8H PRN for severe pain (7-10), #8 TAB Insulin Lispro (Humalog) 100 Unit/Ml Insuln.pen 14 UNIT SQ TIDAC@0900,1400,1900, #15 ML 1 Refill Also follow the sliding scale that was provided Nicotine 21 MG Patch* (Habitrol 21 MG Patch*) 1 Each Patch.td24 1 PATCH TD DAILY, #24 PATCH Do not smoke while on a nicotine patch this could markedly raise your blood pressure and you could have a stroke. Continued Medications: [Albuterol] () Aspirin (Aspirin EC) 81 Mg Tablet.dr 1 TAB PO DAILY Atorvastatin Calcium (Atorvastatin Calcium) 40 Mg Tablet 1 TAB PO DAILY Baclofen (Baclofen) 20 Mg Tablet 1 TAB PO TID PRN for muscle spasms for 30 Days, #90 TAB 0 Refills Budesonide/Formoterol Fumarate (Symbicort 160-4.5 Mcg Inhaler) 160 Mcg-4.5 Mcg/Actuation Hfa.aer.ad 2 PUFFS PO Gabapentin (Gabapentin ER) 300 Mg Tab.er.24h 1 CAP PO TID Hydroxyzine HCl (Hydroxyzine HCl) 50 Mg Tablet 1 TAB PO TID PRN for itch Metoprolol Tartrate (Metoprolol Tartrate) 50 Mg Tablet 1 TAB PO BID Montelukast Sodium (Montelukast Sodium) 10 Mg Tablet 1 TAB PO DAILY Discontinued Medications: Amlodipine Besylate (Amlodipine Besylate) 5 Mg Tablet 1 TAB PO BID Furosemide* (Lasix*) 20 Mg Tablet 1 TAB PO DAILY for 30 Days, #30 TAB Potassium Chloride (Klor-Con 8) 8 Meq Tablet.er 1 TAB PO DAILY, #30 TAB-CAP Discharge Summary: The patient was admitted by resident physician JONATHAN Dumas , under the supervision of JIMMY Lockhart MD with the following HPI:"The patient is a 49-year-old female with a PMH of idiopathic intracranial hypertension, prior ischemic stroke related to COVID-19 (no residual deficits), and chronic right ankle fracture, who presents with nausea and intractable vomiting for the past three days. The vomiting is described as bilious. She reports inability to to lerate oral intake during this period. She also endorses progressive polyuria and polydipsia for the past six months. She denies polyphagia. She additionally reports subjective fever since yesterday but denies chills, cough, chest pain, shortness of breath, or diarrhea. Three days ago, she fell in the bath tub when her left knee buckled, leading to worsening pain in her right ankle (previously fractured, using braces). She describes chronic bilateral knee pain. She currently reports severe right ankle pain and dizziness. She has a significant smoking history of 20 pack years (one pack per day for 20 years), though she recently reduced to four cigarettes daily for the past three months. She lives with her mother and adult children NS currently unemployed due to the her ankle injury. Her primary care physician is Dr. Michael Stout at [facility]. She additionally notes dizziness and extreme right ankle pain. She states she fell in the bathtub three days ago when her left knee buckled, leading to worsening right ankle pain. She describes having "bad knees" Ankle x-ray on the right was obtained which was negative for any fracture the patient had informed me she has a calcaneal fracture in his has been six weeks prior to admission a dedicated calcaneus x-ray was obtained which also was negative for any fracture I reviewed the films personally myself and he agreed with the radiologist's reading. The patient has acute diabetes and was requiring insulin the patient's blood glucose was 524 on admission on the day of discharge the patient's blood glucose was mostly in the 100s the couple of readings in the 200s the patient was discharged with a prescription for Lantus 35 units SQ p.m. and lispro 14 units PC the patient has a follow up appointment diabetic education through [facility]. The patient smoke cigarettes and I did speak to the patient about smoking cessation and the patient's was wearing a nicotine patch during hospitalization discharged with a nicotine patch. The patient had hypokalemia however this resolved by the day discharge the patient was treated with the potassium replacement protocol. The patient has a peripheral neuropathy has significant amount of neuropathic pain-in his on gabapentin the patient was discharged with [place] 5/325 as well one tablet every 6 hours for severe pain a total of eight tablets were written. I did start the patient on lisinopril for she has a diabetic. Gen. No acute distress alert and oriented 4 Lungs clear to ascultation bilaterally, no wheezes rales or rhonchi appreciated Heart normal sinus rhythm no murmurs rubs or clicks noted Abdomen soft nontender bowel sounds are normoactive Lower extremities no clubbing cyanosis, nor edema appreciated bilaterally The patient felt ready to be discharged and was medically cleared to be discharged on 05/08/2025 The patient was seen and evaluated on day of discharge. Time spent on discharge 35 minutes *Problems/Diagnosis: (1) Peripheral neuropathy Total Time Spent on D/C: > 30 Minutes Date of Service: May 08, 2025 Billing Provider: CHIQUI LOVING DO Common Visit Codes: 90661-GOF/OBS DISCH DAY >30min CHIQUI LOVING DO May 08, 2025 23:20
== END 2025-05-08 17:19 | disposition home or self-care (01) | DRG 420 ==
LOC: ER 22:04 → ED HOLD 05-05 01:15 → PCU 3S 05-05 04:20 → SUR 3N 05-06 13:53
PROVIDERS: ADMIT Internal Medicine; ATTEND Family Medicine
DX: E11.65 Type 2 diabetes mellitus with hyperglycemia (principal); E87.1 Hypo-osmolality and hyponatremia; E11.40 Type 2 diabetes mellitus with diabetic neuropathy, unspecified; E78.00 Pure hypercholesterolemia, unspecified; E87.6 Hypokalemia; E86.0 Dehydration; N30.90 Cystitis, unspecified without hematuria; F17.210 Nicotine dependence, cigarettes, uncomplicated; J45.909 Unspecified asthma, uncomplicated; M25.571 Pain in right ankle and joints of right foot; G89.29 Other chronic pain; Z86.73 Personal history of transient ischemic attack (TIA), and cerebral infarction without residual deficits; Z88.2 Allergy status to sulfonamides; Z88.0 Allergy status to penicillin; Z83.3 Family history of diabetes mellitus; Z79.899 Other long term (current) drug therapy
CPT/HCPCS: 36415; 36600; 73564; 73600; 73650; 80053; 80061; 80305; 81001; 82803; 82948; 83036; 83605; 83930; 85007; 85018; 85025; 87077; 87081; 87088; 87186; 92508; 94640; 94760; 96361; 96374; 97110; 97161; 97530; 99285; G0378; J0744; J1171; J1650; J1815; J2270; J2405; J2765; J7030; J7120; Q0177